=== PATIENT | male | born 1945 | race Caucasian/White ===

== ENCOUNTER 2016-11-16 09:53 | Outpatient (CLI) | payer MEDICARE ==
[2016-11-16 12:50] LABS: Anion Gap 15 mmol/L (10-20); BUN (Urea Nitrogen) 25 mg/dL (8.4-25.7); Calc. Creatinine Clearance 0 mL/min (70-130); Calcium 9.4 mg/dL (7.8-10.44); Carbon Dioxide 22 mmol/L (23-31); Chloride 106 mmol/L (98-107); Estimated GFR-MDRD 43; LDL Cholesterol, Calculated 65 mg/dL
[2016-11-16 12:52] LABS: Hemoglobin A1c 7.5 % (4.0-6.0)
== END 2016-11-16 09:54 | disposition home or self-care (01) ==
LOC: NAVSJIPCSP 09:53
PROVIDERS: ATTEND Internal Medicine
DX: E78.5 Hyperlipidemia, unspecified (principal); I11.9 Hypertensive heart disease without heart failure; E11.40 Type 2 diabetes mellitus with diabetic neuropathy, unspecified; Z79.899 Other long term (current) drug therapy
CPT/HCPCS: 36415; 80048; 80061; 83036

== ENCOUNTER 2016-11-23 11:09 | Outpatient (CLI) | payer MEDICARE | END 2016-11-23 11:10 | disposition home or self-care (01) | LOC: NAVSJIPCSP 11:09 | PROVIDERS: ATTEND Internal Medicine | DX: M13.0 Polyarthritis, unspecified (principal) | CPT/HCPCS: 36415; 85652; 86038; 86140; 86430 ==

== ENCOUNTER 2017-02-22 08:34 | Outpatient (CLI) | payer MEDICARE ==
[2017-02-22 12:47] LABS: Hemoglobin A1c 7.4 % (4.0-6.0)
[2017-02-22 13:49] LABS: Cardiac Risk 5.3 (Less than 4.5); Cholesterol 203 mg/dL (< 200 Desired); HDL Cholesterol 38 mg/dL (>60 Neg Risk); Triglycerides 473 mg/dL (Less than 150)
== END 2017-02-22 08:35 | disposition home or self-care (01) ==
LOC: NAVSJIPCSP 08:34
PROVIDERS: ATTEND Internal Medicine
DX: E78.5 Hyperlipidemia, unspecified (principal); E11.40 Type 2 diabetes mellitus with diabetic neuropathy, unspecified; Z79.899 Other long term (current) drug therapy
CPT/HCPCS: 36415; 80061; 83036

== ENCOUNTER 2017-03-01 10:19 | Outpatient (CLI) | payer MEDICARE ==
--- NOTE | 2017-03-01 13:31 | RAD ---
CERVICAL SPINE FIVE VIEWS HISTORY: Neck pain. FINDINGS: There are postop changes of apparent spinal fusion with a plate and screws at the C5, C6, and C7 lev els. Degenerative changes are present. There is loss of cervical lordosis with straightening of th e cervical spine. Metallic hardware is intact. No acute fracture, subluxation, or bony destruction is seen. No perihardware lucency is noted to suggest loosening. POS: [facility]
== END 2017-03-01 10:20 | disposition home or self-care (01) ==
LOC: NAV RAD 10:19
PROVIDERS: ATTEND Internal Medicine
DX: M54.2 Cervicalgia (principal); I11.9 Hypertensive heart disease without heart failure; Z98.1 Arthrodesis status
CPT/HCPCS: 72050

== ENCOUNTER 2017-06-29 09:36 | Outpatient (CLI) | payer MEDICARE ==
[2017-06-29 12:21] LABS: Hemoglobin A1c 8.4 % (4.0-6.0)
[2017-06-29 12:29] LABS: Anion Gap 16 mmol/L (10-20); BUN (Urea Nitrogen) 28 mg/dL (8.4-25.7); Calc. Creatinine Clearance 0 mL/min (70-130); Calcium 8.9 mg/dL (7.8-10.44); Carbon Dioxide 20 mmol/L (23-31); Cardiac Risk 4.6 (Less than 4.5); Chloride 105 mmol/L (98-107); Cholesterol 170 mg/dl (< 200 Desired); Estimated GFR-MDRD 40; Glucose 172 mg/dL (83-110); HDL Cholesterol 37 mg/dL (>60 Neg Risk); LDL Cholesterol, Calculated 65 mg/dL; Potassium 5.4 mmol/L (3.5-5.1); Sodium 136 mmol/L (136-145); Triglycerides 342 mg/dL (Less than 150)
== END 2017-06-29 09:37 | disposition home or self-care (01) ==
LOC: NAVSJIPCSP 09:36
PROVIDERS: ATTEND Internal Medicine
DX: I11.9 Hypertensive heart disease without heart failure (principal); N28.9 Disorder of kidney and ureter, unspecified; E78.5 Hyperlipidemia, unspecified; E11.40 Type 2 diabetes mellitus with diabetic neuropathy, unspecified; Z79.899 Other long term (current) drug therapy
CPT/HCPCS: 36415; 80048; 80061; 83036

== ENCOUNTER 2017-11-14 08:57 | Outpatient (CLI) | payer MEDICARE ==
--- NOTE | 2017-11-14 11:08 | ULT ---
RENAL ULTRASOUND: HISTORY: Chronic kidney disease. FINDINGS: Both kidneys measure approximately 11 cm in length. There is a 2.5 to 3.5 cm cyst inferior left kidn ey. There is a 1.0 cm cyst inferior right kidney. Both kidneys show increased cortical echogenicity consistent with chronic medial renal disease. Ther e is no hydronephrosis. The urinary bladder is mildly distended and appears unremarkable. The prevoid urine volume is record ed at 152 cc and the post void residual urine volume is recorded at 77 cc. IMPRESSION: 1. Small bilateral cysts as described. 2. Increased cortical echogenicity bilaterally. POS: [facility]
== END 2017-11-14 08:58 | disposition home or self-care (01) ==
LOC: NAV ULT 08:57
PROVIDERS: ATTEND Internal Medicine Nephrology
DX: N18.9 Chronic kidney disease, unspecified (principal); N28.1 Cyst of kidney, acquired; N28.89 Other specified disorders of kidney and ureter
CPT/HCPCS: 76770

== ENCOUNTER 2021-03-17 11:16 | Outpatient (CLI) | payer MEDICARE | END 2021-03-17 11:17 | disposition home or self-care (01) | LOC: NAV RAD 11:16 | PROVIDERS: ATTEND Internal Medicine | DX: M25.551 Pain in right hip (principal); M25.552 Pain in left hip; M25.562 Pain in left knee; M16.0 Bilateral primary osteoarthritis of hip; M17.12 Unilateral primary osteoarthritis, left knee ==